=== PATIENT | male | born 1995 | race Two or more races ===

== ENCOUNTER 2021-11-08 07:50 | Emergency (ER) | payer OTHER ==
[~2021-11-08] VITALS: Ht 162.6 cm; Wt 78.2 kg
[2021-11-08 07:50] VITALS: BP 147/78
[2021-11-08 10:20] LABS: GC DNA AMPLIFICATION NEGATIVE (NEGATIVE)
[2021-11-08] MEDS ORDERED: MICO2CRE42 TOP (10:55)
== END 2021-11-08 11:08 | disposition home or self-care (01) ==
LOC: M ED 07:50
DX: L29.8 Other pruritus (principal); Z88.6 Allergy status to analgesic agent

== ENCOUNTER 2021-11-20 07:26 | Emergency (ER) | payer OTHER ==
[~2021-11-20] VITALS: Ht 162.6 cm; Wt 72.7 kg
[~2021-11-20 07:26] MED LIST: MICO2CRE42 TOP
[2021-11-20] MEDS ORDERED: PRED20TA PO (07:49)
[2021-11-20] MEDS ORDERED: OLOP2.5D3 OU (08:01)
[2021-11-20 08:02] VITALS: BP 124/70
== END 2021-11-20 08:03 | disposition home or self-care (01) ==
LOC: M ED 07:26
DX: G89.29 Other chronic pain (principal); M25.532 Pain in left wrist; H10.9 Unspecified conjunctivitis; Z88.6 Allergy status to analgesic agent

== ENCOUNTER → 2021-11-27 | Outpatient (CLI) | payer OTHER ==
[~2021-11-27] MED LIST changes: +OLOP2.5D3 OU; +PRED20TA PO
[2021-11-27 13:24] LABS: BASO % 0.2 % (0.0-1.0); EOS % 0.2 % (0.0-3.0); HEMATOCRIT 45.7 % (42.0-52.0); HEMOGLOBIN 15.4 g/dl (13.5-17.5); LYMPH # 2.3 10^3/uL (1.5-5.0); LYMPH % 25.8 % (24.0-44.0); MEAN CORPUSCULAR HEMOGLOBIN 29.6 pg (27.0-33.0); MEAN CORPUSCULAR HGB CONC 33.7 g/dl (32.0-36.5); MEAN CORPUSCULAR VOLUME 87.7 fl (80.0-96.0); MONO # 0.6 10^3/uL (0.0-0.8); MONO % 7.2 % (2.0-8.0); NEUTROPHILS # 5.8 10^3/uL (1.5-8.5); NEUTROPHILS % 66.1 % (36.0-66.0); PLATELET COUNT, AUTOMATED 277 10^3/uL (150-450); RED BLOOD COUNT 5.21 10^6/uL (4.30-6.10); WHITE BLOOD COUNT 8.8 10^3/uL (4.0-10.0)
[2021-11-27 13:53] LABS: BLOOD UREA NITROGEN 15 MG/DL (7-18); CALCIUM LEVEL 9.7 MG/DL (8.5-10.1); CARBON DIOXIDE LEVEL 30 MEQ/L (21-32); CHLORIDE LEVEL 107 MEQ/L (98-107); FERRITIN 153 NG/ML (26-388); GLOMERULAR FILTRATION RATE > 60.0 (>60); GLUCOSE, FASTING 85 MG/DL (70-100); POTASSIUM SERUM 4.5 MEQ/L (3.5-5.1); SODIUM LEVEL 141 MEQ/L (136-145)
[2021-11-27 14:00] LABS: TOTAL 25(OH) VITAMIN D 14.1 NG/ML (30.0-100.0); VITAMIN B12 LEVEL 452 PG/ML (247-911)
== END ==
LOC: M PLALAB 10:52
PROVIDERS: ATTEND Internal Medicine Hematology
DX: D57.3 Sickle-cell trait (principal)
CPT/HCPCS: 36415; 80048; 81002; 82306; 82607; 82728; 85025; G0463